=== PATIENT | male | born 1960 | race Caucasian/White ===

== ENCOUNTER 2016-08-09 11:21 | Day surgery (SDC) | payer MEDICAID ==
[2016-08-09] MEDS ORDERED: NS 1,000 ML IV ONE (11:30)
[2016-08-09] MEDS ORDERED: diphenhydrAMINE 25 MG CAP PO ONE ×2 (11:30→11:50)
[2016-08-09] MEDS ORDERED: FAMOTIDINE 20 MG TAB PO ONE (11:30)
[2016-08-09] MEDS ORDERED: ASPIRIN EC 325 MG TAB PO ONE ×2 (11:30→11:50)
[2016-08-09] MEDS ORDERED: DIAZEPAM 5 MG TAB PO ONE (11:30)
--- NOTE | 2016-08-09 11:48 | CPEKG ---
Heart Rate: 78 RR Interval: 769 P-R Interval: 168 QRSD Interval: 158 QT Interval: 424 QTC Interval: 484 P [place]: 59 QRS [place]: -110 T Wave [place]: 29 EKG Severity - ABNORMAL ECG - EKG Impression: SINUS RHYTHM EKG Impression: RIGHT BUNDLE BRANCH BLOCK Electronically Signed By: Anil Pena 09-Aug-2016 12:16:01
[2016-08-09] MEDS ORDERED: FAMOTIDINE 20 MG TAB ONE (11:50)
[2016-08-09] MEDS ORDERED: DIAZEPAM 5 MG TAB ONE (11:51)
[2016-08-09] MEDS ORDERED: LIDOCAINE 1% 30 ML SDV ONE (11:53)
[2016-08-09] MEDS ORDERED: IOPAMIDOL (ISOVUE 370) 100 ML BTL IV ONE ×2 (11:54→13:40)
[2016-08-09] MEDS ORDERED: MIDAZOLAM 2 MG/2 ML VIAL ONE ×2 (11:54→13:36)
[2016-08-09] MEDS ORDERED: fentaNYL 100 MCG/2 ML INJ ONE (11:54)
[2016-08-09 12:05] LABS: % IMMATURE GRANULYOCYTES 0.6 % (0.0-1.1); ABSOLUTE IMMATURE GRANULOCYTES 0.05 10^3/uL (0.00-0.10); ADD DIFF? NO; ADD MORPH? NO; ADD SCAN? NO; ATYPICAL LYMPHOCYTE FLAG 20 (0-99); FRAGMENT RBC FLAG 0 (0-99); HEMATOCRIT 48.1 % (40.0-51.0); HEMOGLOBIN 17.6 g/dL (13.7-17.5); LEFT SHIFT FLG 0 (0-99); LIPEMIA HEMOLYSIS FLAG 90 (0-99); MEAN CELL HEMOGLOBIN 33.3 pg (27.9-34.1); MEAN CELL HEMOGLOBIN CONCENTR. 36.6 g/dL (32.4-36.7); MEAN CELL VOLUME 91.1 fL (81.5-99.8); MEAN PLATELET VOLUME 9.1 fL (8.7-11.7); PLATELET CLUMPS FLAG 0 (0-99); PLATELET COUNT 261 10^3/uL (150-400); RED BLOOD CELL COUNT 5.28 10^6/uL (4.40-6.38); RED CELL DISTRIBUTION WIDTH 13.3 % (11.5-15.2)
[2016-08-09 12:11] LABS: INR 0.97 (0.83-1.16); PROTIME(PATIENT) 12.8 SEC (12.0-15.0)
[2016-08-09 12:27] LABS: ANION GAP 14 mEq/L (8-16); CARBON DIOXIDE 23 mEq/l (22-31); CHLORIDE 103 mEq/L (97-110); CREATININE 0.8 mg/dL (0.7-1.3); GLUCOSE 97 mg/dL (70-100); POTASSIUM 3.9 mEq/L (3.5-5.2); SODIUM 140 mEq/L (134-144)
[2016-08-09 12:28] LABS: CALCIUM 9.2 mg/dL (8.5-10.4); CHOLESTEROL 126 mg/dL (140-220); CHOLESTEROL/HDL RATIO 3.32 RATIO (1.00-4.97); GLOMERULAR FILTRATION RATE > 60; HIGH DENSITY LIPOPROTEIN 38 mg/dL (40-65); LDL/HDL RATIO 1.97 RATIO (1.00-3.64); LOW DENSITY LIPOPROTEIN 75 mg/dL (80-100); MAGNESIUM 1.7 mg/dL (1.6-2.3); NON-HIGH DENSITY LIPOPROTEIN 88 mg/dL (90-129); TRIGLYCERIDE 67 mg/dL (40-150); VERY LOW DENSITY LIPOPROTEINS 13 mg/dL (8-25)
[2016-08-09] MEDS ORDERED: ADENOSINE 90 MG/30 ML VIAL IV ONE (13:23)
[2016-08-09] MEDS ORDERED: BIVALIRUDIN 250 MG/5 ML VIAL IV ONE (13:23)
--- NOTE | 2016-08-09 13:57 | CPIP ---
[f rep st] INVASIVE CARDIAC PROCEDURE PROCEDURE: Left heart catheterization, left ventriculogram, right and left coronary arteriogram. COMPLICATIONS: None. CONDITION AT THE END OF STUDY: Excellent. INDICATION: The patient has chest discomfort now starting to occur at rest. He has had exertional and stress-related discomfort for several months. It is getting more frequent. The patient has known coronary artery disease with multiple episodes of stenting. The patient has an abnormal nuclear stress test with an area of ischemia. LEFT VENTRICULOGRAM: 1. Normal left ventricular systolic function. 2. No regional wall motion abnormalities. 3. No significant mitral regurgitation. 4. Ejection fraction 57%. LEFT HEART CATHETERIZATION: 1. Left ventricular end-diastolic pressure 14 mmHg. 2. No aortic stenosis. CORONARY ANGIOGRAPHY: 1. Right coronary angiography: The patient has a dominant right coronary artery with diffuse intim al disease present and multiple narrowings in the 20% to 25% range through the proximal and mid righ t coronary artery. The right coronary artery is dominant. There are [id number] collaterals fill ing what appears to be a septal telephone interviewer. 2. Left coronary artery: Left main coronary artery is normal. 3. Left anterior descending artery has proximal to mid segment stents with excellent flow and no si gnificant in-stent restenosis. There is a 1st septal telephone interviewer which is the that is pinc hed from the LAD stent. 4. The diagonal is rather narrow. There is no high-grade obstruction. 5. The circumflex coronary artery has a proximal stent that extends into the second large obtuse ma rginal branch. There is a very proximal first obtuse marginal branch that has 30% ostial disease pr esent. The patient has a ramus intermedius branch, and that shows what appears by eye to be an 80% proximal narrowing. ASSESSMENT AND PLAN: 1. The patient has severe coronary artery disease. 2. The patient is getting chest pain that could certainly be anginal. 3. A flow reserve will be evaluated for the ramus intermedius lesion. RECOMMENDATIONS: PCI consultation with FFR study. The patient has been encouraged to stop smoking. We have talked about this extensively. We will co amy to talk about this. The patient needs to be very aggressive with prevention, losing weight, watching his lipids, watchin g his blood sugar control and maintaining excellent blood pressure. Aggressive followup will be set in place. /[id number]/MODL
--- NOTE | 2016-08-09 15:07 | CPIP ---
[f rep st] INVASIVE CARDIAC PROCEDURE DATE OF PROCEDURE: 08/09/2016 PROCEDURE: 1. Coronary angiography. 2. Fractional flow reserve of ramus coronary artery. INDICATION: 1. Known coronary artery disease, status post previous stenting of left anterior descending coronar y artery and circumflex coronary artery. 2. Angina. 3. Abnormal nuclear stress test. 4. Intermediate grade lesion involving the proximal ramus coronary artery. ACCESS AND CORONARY ANGIOGRAPHY: Access and coronary angiography was performed by Dr. Amarjit rutledge. Coronary angiography was notable for an intermediate grade lesion involving the proximal ramus c oronary artery. I was consulted to perform FFR to determine physiologic significance of this lesion . FRACTIONAL FLOW RESERVE OF THE RAMUS CORONARY ARTERY: A 6-Setswana JL4 was advanced to the left main coronary artery and images obtained. The left main coronary artery quadrificated into the LAD, henri s 1, ramus 2, and circumflex coronary arteries. The ramus 1 coronary artery had an intermediate to high-grade lesion involving the [id number] segment. The lesion angiographically appeared 70 % to 80% narrowed. The FFR wire was advanced to the distal portion of the catheter and equalization obtained. Equalization demonstrated an FFR of 1. The guidewire was then placed in the ramus coron mia artery distal to the lesion and IV adenosine infused. After IV adenosine infusion, the FFR decr eased to 0.90, indicating no flow limitation. The FFR wire was then withdrawn back to the distal po rtion of the catheter and FFR obtained. The FFR was 0.99, indicating no significant drips. COMPLICATIONS: None. CONCLUSIONS: 1. Intermediate grade lesion involving the [id number] ramus coronary artery. 2. Fractional flow reserve of the ramus coronary artery was 0.90, indicating no significant flow li mitation. /[id number]/MODL
== END 2016-08-09 18:29 | disposition home or self-care (01) ==
LOC: FCATH 11:21
PROVIDERS: ATTEND Internal Medicine
DX: I25.119 Atherosclerotic heart disease of native coronary artery with unspecified angina pectoris (principal); E78.5 Hyperlipidemia, unspecified; I25.2 Old myocardial infarction; Z95.5 Presence of coronary angioplasty implant and graft; Z98.1 Arthrodesis status
CPT/HCPCS: 93005; 93458; 93571; C1769; C1887; C1760; J0153; J0583; J1644; J2250; J3010; Q9967